=== PATIENT | male | born 1990 | race Caucasian/White ===

== ENCOUNTER 2016-07-04 18:14 | Emergency (ER) | payer OTHER ==
[2016-07-04] MEDS ORDERED: IOPAMIDOL 370 (76%) 100 ML VIAL IV ONE (18:15)
[2016-07-04] MEDS ORDERED: ACETAMINOPHEN 500 MG TABLET ONE (19:11)
[2016-07-04] MEDS ORDERED: PANTOPRAZOLE SODIUM 40 MG VIAL IV ONE (19:11)
[2016-07-04] MEDS ORDERED: MAALOX/LIDO2%VISC/SIMETHICONE 40 ML BOT ONE (19:11)
[2016-07-04] MEDS ORDERED: SODIUM CHLORIDE 0.9% 1,000 ML ONE (19:11)
[2016-07-04 19:34] LABS: ABSOLUTE NEUTROPHIL COUNT 5.6 K/mm3 (1.8-7.7); BASO % 0.2 % (0.2-1.0); EOS # 0.1 (0.0-0.5); EOS % 1.5 % (0.9-2.9); HEMATOCRIT 45.2 % (32.0-52.0); IMM NEUT% 0.2 % (0-1); LYMPH # 2.9 (1.0-4.8); LYMPH % 31.4 % (15-45); MEAN CELL VOLUME 85.3 fl (80.0-94.0); MEAN CORPUSCULAR HEMOGLOBIN 28.3 pg (27.0-31.0); MEAN CORPUSCULAR HGB CONC 33.2 g/dl (33.0-37.0); MEAN PLATELET VOLUME 10.7 fl (7.4-10.4); MONO # 0.6 (0.0-0.8); MONO % 6.9 % (4-12); NEUT % 59.8 % (43-75); PLATELET COUNT 262 K/mm3 (130-400); RED CELL DISTRIBUTION WIDTH 12.9 % (11.5-14.5)
[2016-07-04 19:50] LABS: ALBUMIN 4.4 gm/dL (3.5-5.7); CALCIUM 9.5 mg/dL (8.6-10.3)
--- NOTE | 2016-07-04 19:58 | CT ---
Exam: CT abdomen and pelvis with contrast COMPARISON: None INDICATION: Left upper quadrant pain for 2 days. TECHNIQUE: CT examination of the abdomen and pelvis was obtained following the administration of 100 of Isovue-300 intravenous contrast. FINDINGS: The bowel, including the appendix, is unremarkable and there is no bowel obstruction, free air or free intraperitoneal fluid. The liver, spleen, pancreas, kidneys, adrenal glands and gallbladder are unremarkable. Lung bases are clear. Bones are unremarkable. IMPRESSION: Negative CT abdomen and pelvis. Report was uploaded to the EMR at 1953 hours 07/04/2016.
[2016-07-04 20:15] LABS: PH,URINE 6.5 (5.0-8.0); SPECIFIC GRAVITY 1.015 (1.001-1.030); URINE BILIRUBIN NEGATIVE (NEGATIVE); URINE BLOOD NEGATIVE (NEGATIVE); URINE GLUCOSE (UA) NEGATIVE (NEGATIVE); URINE LEUKOCYTE ESTERASE NEGATIVE (NEGATIVE); URINE NITRITE NEGATIVE (NEGATIVE); URINE PROTEIN NEGATIVE (NEGATIVE); URINE UROBILINOGEN NORMAL (0-1 mg/dl)
[2016-07-04 20:25] LABS: URINE APPEARANCE CLEAR; URINE COLOR YELLOW
== END 2016-07-04 20:32 | disposition home or self-care (01) ==
LOC: ED 18:14
DX: R10.12 Left upper quadrant pain (principal); R07.89 Other chest pain; F17.210 Nicotine dependence, cigarettes, uncomplicated
CPT/HCPCS: 83690; 82150; 85025; 80053; 81003; 74177; 99284 ×2; 96374; A9270 ×2; C9113; J7030; Q9967